=== PATIENT | female | born 1960 | race Two or more races ===

== ENCOUNTER → 2024-02-28 | Outpatient (CLI) | payer MEDICAID, SELFPAY ==
--- NOTE | 2024-02-28 10:38 | XR_ITS ---
Examination: Lumbar spine, 5 views Technique: Lumbar spine AP, lateral, coned lateral lower lumbar spine, bilateral obliques 5 views INDICATIONS: Lower back pain beginning 3 months ago. Exam date and time: February 28, 2024 1203 hours: FINDINGS: Prominent osteopenia Mild reduction in height L2-L3 which appears old but clinical correlation advised Mild lumbar spondylosis Mild disc narrowing L1-L2 No spondylolisthesis IMPRESSION: Mild depression superior endplates L2, L3 which appears old but clinical correlation advised Mild degenerative disc disease L1-L2
== END | disposition home or self-care (01) ==
PROVIDERS: PCP Physician Assistant; Referring Provider Physician Assistant; Visit Provider Physician Assistant
DX: M51.369 Other intervertebral disc degeneration, lumbar region without mention of lumbar back pain or lower extremity pain (principal); G98.8 Other disorders of nervous system
CPT/HCPCS: 72110